=== PATIENT | male | born 2000 | race Caucasian/White ===

== ENCOUNTER 2019-11-04 23:33 | Emergency (ER) | payer OTHER ==
[~2019-11-04] VITALS: Ht 182.9 cm; Wt 75.0 kg
[2019-11-04 23:43] VITALS: TEMP 98.1
[2019-11-05 00:48] LABS: BASO % 0.3 % (0.0-2.0); EOS # 0.1 (0.0-0.7); EOS % 1.5 % (0-4.0); GRAN # 6.4 (1.4-6.5); GRAN % 67.6 % (42.2-75.2); HEMATOCRIT 42.2 % (36.0-47.0); HEMOGLOBIN 14.5 g/dl (12.5-16.1); LYMPH # 2.2 (1.2-3.4); LYMPH % 23.1 % (20.0-51.0); MEAN CELL VOLUME 92 fl (80.0-95.0); MEAN CORPUSCULAR HEMOGLOBIN 32 pg (26.0-32.0); MEAN CORPUSCULAR HGB CONC 34 g/dl (33.0-37.0); MONO # 0.7 (0.1-0.6); MONO % 7.3 % (1.7-9.3); PLATELET COUNT 253 K/mm3 (130-400); RED BLOOD COUNT 4.58 M/mm3 (4.20-5.60); REDCELL DISTRIBUTION WIDTH-CV 12.4 % (11.5-14.5)
[2019-11-05 00:52] LABS: PROTHROMBIN TIME 12.2 SECONDS (9.7-12.8)
[2019-11-05 01:07] LABS: ALANINE AMINOTRANSFERASE 26 U/L (21-72); ALBUMIN 4.8 gm/dL (3.5-5.0); ALKALINE PHOSPHATASE 44 U/L (50-136); ANION GAP 12 mmol/L (7-16); AST,SGOT 24 U/L (15-37); BILIRUBIN,TOTAL 0.7 mg/dL (0.0-1.0); BLOOD UREA NITROGEN 19 mg/dL (9-20); CALCIUM 10.4 mg/dL (8.4-10.2); CARBON DIOXIDE 26 mmol/L (22-30); CHLORIDE 105 mmol/L (98-107); CREATININE, serum 1.12 (0.66-1.25); GLUCOSE 103 mg/dL (74-106); POTASSIUM 4.1 mmol/L (3.4-5.0); SODIUM 144 mmol/L (137-145); TOTAL PROTEIN 7.9 gm/dL (6.4-8.2)
[2019-11-05 02:08] LABS: TROPONIN-I < 0.012 ng/mL (0.000-0.035)
[2019-11-05 02:29] VITALS: BP 123/78; PULSE 70
== END 2019-11-05 02:29 | disposition home or self-care (01) ==
LOC: COL.ER 23:33
PROVIDERS: Emergency Medicine
DX: F41.9 Anxiety disorder, unspecified (principal); R07.89 Other chest pain

== ENCOUNTER 2020-03-30 20:34 | Emergency (ER) | payer OTHER ==
[~2020-03-30] VITALS: Ht 182.9 cm; Wt 70.5 kg
[2020-03-30 20:38] VITALS: BP 154/106; TEMP 97.8
[2020-03-30 21:16] LABS: ALANINE AMINOTRANSFERASE 41 U/L (4-49); ALBUMIN 5.3 gm/dL (3.5-5.0); ALKALINE PHOSPHATASE 48 U/L (50-136); ANION GAP 12 mmol/L (7-16); AST,SGOT 32 U/L (15-37); BILIRUBIN,TOTAL 0.7 mg/dL (0.0-1.0); BLOOD UREA NITROGEN 13 mg/dL (9-20); C-REACTIVE PROTEIN < 0.5 mg/dL (0.0-0.9); CALCIUM 10.8 mg/dL (8.4-10.2); CARBON DIOXIDE 26 mmol/L (22-30); CHLORIDE 103 mmol/L (98-107); CREATININE, serum 0.98 (0.66-1.25); GLUCOSE 101 mg/dL (74-106); LIPASE 62 U/L (23-300); POTASSIUM 3.8 mmol/L (3.4-5.0); SODIUM 140 mmol/L (137-145); TOTAL PROTEIN 9.2 gm/dL (6.4-8.2)
[2020-03-30 21:19] LABS: BASO % 0.3 % (0.0-2.0); EOS # 0.1 (0.0-0.7); EOS % 0.8 % (0-4.0); GRAN # 10.5 (1.4-6.5); GRAN % 81.8 % (42.2-75.2); HEMATOCRIT 47.5 % (36.0-47.0); HEMOGLOBIN 16.6 g/dl (12.5-16.1); LYMPH # 1.5 (1.2-3.4); LYMPH % 11.9 % (20.0-51.0); MEAN CELL VOLUME 94 fl (80.0-95.0); MEAN CORPUSCULAR HEMOGLOBIN 33 pg (26.0-32.0); MEAN CORPUSCULAR HGB CONC 35 g/dl (33.0-37.0); MEAN PLATELET VOLUME 9.2 fl (7.4-10.4); MONO # 0.7 (0.1-0.6); PLATELET COUNT 290 K/mm3 (130-400); RED BLOOD COUNT 5.08 M/mm3 (4.20-5.60); REDCELL DISTRIBUTION WIDTH-CV 11.8 % (11.5-14.5)
[2020-03-30 23:09] LABS: MONOSCREEN NEGATIVE
[2020-03-30 23:14] VITALS: PULSE 78
== END 2020-03-30 23:14 | disposition home or self-care (01) ==
LOC: COL.ER 20:34
PROVIDERS: Family Medicine
DX: R10.12 Left upper quadrant pain (principal)
CPT/HCPCS: J2405; J3010; J7120; Q9967

== ENCOUNTER 2020-06-06 00:22 | Emergency (ER) | payer OTHER ==
[~2020-06-06] VITALS: Ht 182.9 cm; Wt 68.2 kg
[2020-06-06 00:28] VITALS: TEMP 98.4
[2020-06-06] MEDS ORDERED: ALBUTEROL0.83 MG/ML IH (00:31)
[2020-06-06 02:11] VITALS: BP 120/82; PULSE 78
== END 2020-06-06 02:22 | disposition home or self-care (01) ==
LOC: COL.ER 00:22
DX: R06.02 Shortness of breath (principal); Z88.1 Allergy status to other antibiotic agents; J45.909 Unspecified asthma, uncomplicated; Z20.828 Contact with and (suspected) exposure to other viral communicable diseases

== ENCOUNTER 2020-07-16 13:08 | Emergency (ER) | payer SELFPAY ==
[~2020-07-16] VITALS: Ht 182.9 cm; Wt 70.5 kg
[~2020-07-16 13:08] MED LIST: ALBUTEROL0.83 MG/ML IH
[2020-07-16 13:20] VITALS: TEMP 98.6
[2020-07-16 14:41] LABS: COLLECTION METHOD CLEAN CATCH
[2020-07-16 14:42] LABS: BASO # 0.1 (0.0-0.2); BASO % 0.6 % (0.0-2.0); EOS # 0.1 (0.0-0.7); EOS % 0.7 % (0-4.0); GRAN # 8.9 (1.4-6.5); GRAN % 83.4 % (42.2-75.2); HEMATOCRIT 43.1 % (36.0-47.0); LYMPH % 9.5 % (20.0-51.0); MEAN CELL VOLUME 93 fl (80.0-95.0); MEAN CORPUSCULAR HEMOGLOBIN 32 pg (26.0-32.0); MEAN CORPUSCULAR HGB CONC 35 g/dl (33.0-37.0); MEAN PLATELET VOLUME 8.8 fl (7.4-10.4); MONO # 0.6 (0.1-0.6); MONO % 5.4 % (1.7-9.3); PLATELET COUNT 278 K/mm3 (130-400); RED BLOOD COUNT 4.63 M/mm3 (4.20-5.60); REDCELL DISTRIBUTION WIDTH-CV 12.3 % (11.5-14.5)
[2020-07-16 14:50] LABS: MUCOUS Present /lpf; PH 7 (5-8); SQUAMOUS EPITHELIAL 0-2 /hpf; URINE APPEARANCE Hazy; URINE BACTERIA None Seen /hpf; URINE BILIRUBIN Negative (NEGATIVE); URINE BLOOD Negative (NEGATIVE); URINE COLOR Yellow; URINE GLUCOSE Negative (NEGATIVE); URINE KETONE Trace (NEGATIVE); URINE LEUKOCYTE ESTERASE Negative (NEGATIVE); URINE NITRATE Negative (NEGATIVE); URINE PROTEIN(semi-quant) 1+ (NEGATIVE); URINE RBC 0-2 /hpf; URINE UROBILINOGEN Negative (NEGATIVE)
[2020-07-16 14:53] LABS: BILIRUBIN,TOTAL 0.9 mg/dL (0.0-1.0); CALCIUM 9.8 mg/dL (8.4-10.2); CREATININE, serum 0.81 (0.66-1.25); POTASSIUM 3.6 mmol/L (3.4-5.0)
[2020-07-16 14:59] LABS: TRICYCLIC ANTIDEPRESS URINE NEGATIVE
[2020-07-16] MEDS ORDERED: ATIVAN 1MG T1 MG/TAB PO (16:04)
[2020-07-16 16:15] VITALS: BP 116/75; PULSE 92
== END 2020-07-16 16:20 | disposition home or self-care (01) ==
LOC: COL.ER 13:08
PROVIDERS: Physician Assistant
DX: R07.9 Chest pain, unspecified (principal); F41.9 Anxiety disorder, unspecified; Z86.19 Personal history of other infectious and parasitic diseases; Z88.1 Allergy status to other antibiotic agents
CPT/HCPCS: J2060; J7030